=== PATIENT | male | born 1960 | race Caucasian/White ===

== ENCOUNTER 2018-07-06 12:34 | Inpatient (IN) | payer BC ==
[~2018-07-06] VITALS: Ht 190.5 cm; Wt 117.2 kg
[2018-07-06] VITALS (34 sets, daily range): BP systolic 124–166; BP diastolic 65–104
[~2018-07-06 12:34] MED LIST: FLEXERIL PO; NORCO 5-325 TA1 EACH PO; PROVENTIL HFA6.7 G1 INH
[2018-07-06] MEDS ORDERED: ASPIR-TRIN325 MG PO (12:46)
[2018-07-06 12:59] LABS: HEMATOCRIT 45.4 % (42.0-52.0); HEMOGLOBIN 15.1 gm/dL (14.0-18.0); MCH 27.5 pg (26.0-34.0); MCHC 33.3 g/dL (28.0-37.0); MCV 82.5 fL (80.0-100.0); RBC 5.5 mil/uL (4.50-6.00); WBC 10.4 thou/uL (4.0-11.0)
[2018-07-06 13:04] LABS: ANION GAP 14 mmol/L (7-16); BUN 21 mg/dL (7-18); CALCIUM 9.4 mg/dL (8.5-10.1); CHLORIDE 99 mmol/L (98-107); CO2 22 mmol/L (21-32); CREATININE 1.4 mg/dL (0.7-1.3); GLUCOSE 231 mg/dL (74-106); POTASSIUM 3.7 mmol/L (3.5-5.1)
[2018-07-06 13:06] LABS: SODIUM 135 mmol/L (136-145)
[2018-07-06 13:13] LABS: ALBUMIN 3.6 g/dL (3.4-5.0); SGOT 20 U/L (15-37); SGPT 30 U/L (30-65); TOTAL BILIRUBIN 0.4 mg/dL (<0.1-1.0); TOTAL PROTEIN 7.5 g/dL (6.4-8.2); TROPONIN-I <0.06 ng/mL (<0.06)
--- NOTE | 2018-07-06 15:28 | CATHLAB ---
[facility] [address] [place] [address] INVASIVE PROCEDURE REPORT Name: JOSEP TALBOT Room #: 243-P ADM IN M.R.#: [id number] Admission: 07/06/18 Attend Phys: Ghanshyam Oden MD Discharge: Date of : 58 Date of Service: 07/06/18 1528 Report #: [id number] THIS REPORT FOR: //name// APPROVED REPORT Study performed: 07/06/2018 13:02:58 Patient Details Patient Status: ED Room #: The patient is a 57 year-old male Event Personnel Ghanshyam Oden Industrial Automation Engineer, Kylie Blakely RTR, COOKEE Monitor, James Wiley RN RN, Mychal Jackson Scrkay Procedures Performed Art Access - R femoral artery* Left Heart Cath w/or w/o Coronaries [id number] [facility] BMS Revasc AMI Total/Sub Single RCA [id number] [facility] Hemostasis w/ Mynx Indication STEMI (>0 to less than or equal to 6 hours), Dyspnea, Chest pain Risk Factors Hypercholesterolemia, Hypertension, Diabetes Procedure Narrative The Right Groin^ was infiltrated with 1% Lidocaine subcutaneous anesthesia. A PINNACLE 6FR Sheath #[id number] sheath was inserted into the RFA^. Coronary angiography was performed using coronary diagnostic catheters. The right coronary system was accessed and visualized with a LAUNCHER 6FR JR 4 #[id number] catheter. The left coronary system was accessed and visualized with a JL4 catheter. The left ventricle was accessed and visualized with a ANGLED PIGTAIL catheter. Left ventricular/Aortic Valve gradient assessed via catheter pullback. Left ventriculogram was performed in 30 degree projection. Pre-demployment femoral angiogram was performed . Closure device was deployed with a 6 Fr MYNXGRIP 6/7F #[id number]. A hematoma occurred. Intraoperative Conscious Sedation No sedation was given. Fluoro Time: 13.39 minutes [facility] [place] [address] INVASIVE PROCEDURE REPORT Name: JOSEP TALBOT Room #: 243-P [facility] IN M.R.#: [id number] Admission: 07/06/18 Attend Phys: Ghanshyam Oden MD Discharge: Date of : 58 Date of Service: 07/06/18 1528 Report #: [id number] Dose: DAP 51345.10 cGycm2 2404 mGy Contrast Type and Amount: Visipaque 240 ml Coronary Angiography The patient's coronary anatomy is right dominant. Diagnostic Cath Left Main This is a large caliber vessel, with no flow-limiting lesions. LAD This is a moderate size caliber vessel, traversing the anterior wall and wrapping around the apex. There is mild diffuse disease in the proximal segment, 10%. Diagonal 1 This is a patent vessel, with no flow-limiting lesions. Circumflex There is mild diffuse disease in the proximal segment, 10%. OM1 This is a moderate size caliber vessel, with mild disease proximally. OM2 This is a patent vessel, with no flow-limiting lesions. Right Coronary This is a dominant vessel, ectatic throughout with a total occlusion in the midsegment. R PDA There is mild disease proximally. RPLV There is a total occlusion in the proximal segment. Left Ventriculography The left ventricle is normal in size with decreased contractility. The left ventricular ejection fraction is estimated to be 40-45%. There is hypokinesis of the inferior wall. Hemodynamics The aortic pressure is 192/94 mmHg with a mean of 131 mmHg. The left ventricular pressure is 137/12 mmHg with a mean of mmHg. The left ventricular end diastolic pressure is 29 mmHg. PCI Technique Lesion Percutaneous coronary intervention was performed on the mid right coronary artery. The lesion stenosis prior to intervention was 100% with JEWELS 0 flow. A LAUNCHER 6FR JR 4 #[id number] Guide Catheter was used to engage the ostium. A Luge Wire .014 x 182CM #[id number] Interventional Guidewire was used to cross the lesion. BALLOON DILATION A Balloon catheter Euphora RX 2.5 x 12 #[id number] was inserted and inflated up to 8.00atm for 9seconds. Additional Inflation: 8.00atm for 7seconds. Additional Inflation: 8.00atm for 5seconds. [facility] [address] [place] [address] INVASIVE PROCEDURE REPORT Name: JOSEP TALBOT Room #: 243-P [facility] IN M.R.#: [id number] Admission: 07/06/18 Attend Phys: Ghanshyam Oden MD Discharge: Date of : 58 Date of Service: 07/06/18 1528 Report #: [id number] STENT DEPLOYMENT A bare metal stent INTEGRITY RX 3.5 X 12 #[id number] was inserted and inflated up to 18.00atm for 19seconds. A bare metal stent was used in this segment as the vessel was ectatic. Final angiography reveals 5 % stenosis with JEWELS 3 flow. PCI Technique Lesion 2 Percutaneous Coronary Intervention was performed on the first right posterior lateral segment. The lesion stenosis prior to intervention was 100% with JEWELS 0 flow. A LAUNCHER 6FR JR 4 #[id number] Guide Catheter was used to engage the ostium. A Luge Wire .014 x 182CM #[id number] Interventional Guidewire was used to cross the lesion. Balloon Dilation A Balloon catheter Euphora RX 2.0 x 15 #[id number] was inserted and inflated up to 8.00atm for 16seconds. Additional Inflation: 6.00atm for 15seconds. Stent Deployment A bare metal stent INTEGRITY RX 2.75 X 14 #[id number] was inserted and inflated up to 8.00atm for 18seconds. Final angiography reveals 0 % stenosis with JEWELS 3 flow. PCI Technique Lesion 3 Percutaneous Coronary Intervention was performed on the second right posterior lateral segment. A LAUNCHER 6FR JR 4 #[id number] Guide Catheter was used to engage the ostium. A Luge Wire .014 x 182CM #[id number] Interventional Guidewire was used to cross the lesion. Stent Deployment A bare metal stent INTEGRITY RX 2.75 X 14 #[id number] was inserted and inflated up to 18.00atm for 18seconds. Conclusion 1. Successful insertion of bare metal stents into the mid RCA(ectatic vessel) and first RPL branch. 2. Mild disease in the LAD and left circumflex arteries. 3. Mild to moderate segmental LV dysfunction. 4. Recommend aggressive risk factor management and dual antiplatelet therapy. <ELECTRONICALLY SIGNED> By: Ghanshyam Oden MD 07/06/18 1528 1528 1528 Ghanshyam Oden MD /INF
--- NOTE | 2018-07-06 15:29 | HC ---
[facility] [place] [address] [place] [address] CONSULTATION Name: JOSEP TALBOT Room #: [facility] IN M.R.#: [id number] Admission: 07/06/18 Attend Phys: Ghanshyam Oden MD Discharge: Date of : 58 Report #: [id number] THIS REPORT FOR: //name// CC: [facility] physician/PCP Bhupinder Dodd DATE OF SERVICE: 07/06/2018 INDICATION: Chest pain. HISTORY OF PRESENT ILLNESS: This is a 57-year-old gentleman with a history of borderline hypertension, borderline diabetes mellitus, presenting with acute onset of chest pain. He developed substernal chest pain radiating to left arm approximately 2 hours prior to presentation in the ER. He denies any diaphoresis or dyspnea. There is no history of fever, chills, nausea or diarrhea. He denies any previous cardiac history. PAST MEDICAL HISTORY: Borderline hypertension, borderline diabetes. History of pneumonia with pneumothorax. ALLERGIES: None. MEDICATIONS: None. SOCIAL HISTORY: Denies tobacco use, works as a mri specialist. FAMILY HISTORY: Negative for premature CAD. REVIEW OF SYSTEMS: A full 10-point review of system is performed. Only the pertinent positives and negatives as described in the HPI. PHYSICAL EXAMINATION: VITAL SIGNS: Blood pressure is 160/90, heart rate is 65 beats per minute. GENERAL APPEARANCE: A mildly overweight male in mild distress. HEENT: Normocephalic, atraumatic. Oral mucosa moist. NECK: Supple. LUNGS: Clear to auscultation. CARDIAC: Regular rate and rhythm, S1, S2 positive. ABDOMEN: Soft, nontender. EXTREMITIES: No cyanosis, no edema. ECG reveals sinus rhythm with 3-[address] segment elevation in the inferior leads. LABORATORY VALUES: Pending. ASSESSMENT AND PLAN: [facility] [address] [place] [address] CONSULTATION Name: JOSEP TALBOT Room #: 243-P ADM IN M.R.#: [id number] Admission: 07/06/18 Attend Phys: Ghanshyam Oden MD Discharge: Date of : 58 Report #: [id number] 1. Acute inferior wall myocardial infarction. The patient was treated with aspirin, Effient and heparin in the ER. He will be taken emergently to the cardiac catheterization lab. 2. Hypertension, will be started on the appropriate medications. 3. Hypercholesterolemia, he will need a lipid panel evaluated and started on a statin. 4. Diabetes mellitus, we will check fingersticks. <ELECTRONICALLY SIGNED> By: Ghanshyam Oden MD 07/06/18 1529 1305 1315 Ghanshyam Oden MD /nt
[2018-07-06 17:53] LABS: MAGNESIUM 1.6 mg/dL (1.8-2.4); POTASSIUM 4.4 mmol/L (3.5-5.1)
--- NOTE | 2018-07-06 18:25 | NUR ---
DR. DALY UPDATED ON FREQUENT PVCS AND MAG LEVEL - ORDERS RECEIVED
[2018-07-07] VITALS (25 sets, daily range): BP systolic 97–125; BP diastolic 45–83
--- NOTE | 2018-07-07 00:45 | NUR ---
ASSUMED CARE OF PT AT 1900. PT ALERT AND ORIENTED X4. PT ON BEDREST TILL 2200 POST CARDIAC CATH. PT SR. HYPERTENSIVE AT TIMES. CRITICAL TROPONIN CALLED TO DR DALY. ORDER FOR LOSARTAN 50 MG PO IF PT HYPERTENSIVE. PT ON CPAP NOCTURNAL. PT REQUESTED NOT TO HAVE MEDICATIONS THAT HE HAS NOT HAD PREVIOUSLY HE STATES THAT HE HAS ADVERSE EFFECTS TO ALOT OF MEDICATION. PT TOLERATING DIET. GOOD UO. HEMATOMA HAS RESOLVED. RIGHT GROIN SITE MILDLY ECHYMOTIC BUT NO HEMATOMA NOTED. SMAL AMOUNT OF DRAINAGE ON DRESSING. WILL CONTINUE TO MONITOR PT.
[2018-07-07 05:16] LABS: HEMATOCRIT 42.3 % (42.0-52.0); HEMOGLOBIN 14.1 gm/dL (14.0-18.0); MCH 27.7 pg (26.0-34.0); MCHC 33.5 g/dL (28.0-37.0); MCV 82.7 fL (80.0-100.0); RBC 5.11 mil/uL (4.50-6.00); RDW 14.2 % (10.5-14.5); WBC 12.1 thou/uL (4.0-11.0)
[2018-07-07 05:31] LABS: CHOLESTEROL 204 mg/dL (<200); HDL CHOLESTEROL 37 mg/dL (>40); LDL CHOLESTEROL 130 mg/dL (<100); TC:HDL 5.5 Ratio (Not establshd); TRIGLYCERIDE 185 mg/dL (<150); VLDL 37 mg/dL (<40)
[2018-07-07 05:32] LABS: SERUM ASSESSMENT Moderate Lipemia
--- NOTE | 2018-07-07 10:56 | EKG ---
[address] [place] [employer] [place] [address] ELECTROCARDIOGRAM REPORT Name: JOSEP TALBOT Room #: 243-P ADM IN M.R.#: [id number] Admission: 07/06/18 Attend Phys: Ghanshyam Oden MD Discharge: Date of : 58 Report #: [id number] THIS REPORT FOR: //name// [facility] ED Test Date: 2018-07-06 Test Time: 12:32:32 Pat Name: JOSEP TALBOT Department: Room: 243 Gender: M Winder Tender: DORCAS : 1960 Requested By: Ghanshyam Oden Order Number: [id number] MD: Ghanshyam Oden Measurements Intervals [place] Rate: 64 P: 45 [place]: 146 QRS: 46 QRSD: 97 T: 93 QT: 413 QTc: 426 Interpretive Statements Sinus rhythm Inferoposterior infarct, acute (RCA) Lateral leads are also involved Probable RV involvement, suggest recording right precordial leads Compared to ECG 03/26/2012 09:41:21 Myocardial infarct finding now present Electronically Signed On 07-07-2018 10:55:49 MERCHANDISING EXECUTION ASSOCIATE by Ghanshyam Oden [email or web address] <ELECTRONICALLY SIGNED> By: Ghanshyam Oden MD 07/07/18 1055 1232 1232 Ghanshyam Oden MD /JAXSON
--- NOTE | 2018-07-07 11:02 | EKG ---
[address] [address] ELECTROCARDIOGRAM REPORT Name: JOSEP TALBOT Room #: 243-P ADM IN M.R.#: [id number] Admission: 07/06/18 Attend Phys: Ghanshyam Oden MD Discharge: Date of : 58 Report #: [id number] THIS REPORT FOR: //name// [facility] Test Date: 2018-07-07 Test Time: 09:32:42 Pat Name: JOSEP TALBOT Department: Room: 243 P Gender: M Heel Coverer Machine Operator: SEEMA : 1960 Requested By: Ghanshyam Oden Order Number: [id number] MD: Ghanshyam Oden Measurements Intervals [place] Rate: 67 P: 49 [place]: 145 QRS: -24 QRSD: 97 T: 33 QT: 395 QTc: 417 Interpretive Statements Sinus rhythm Probable inferior infarct, acute Posterior infarct, recent Compared to ECG 03/26/2012 09:41:21 Myocardial infarct finding now present Electronically Signed On 07-07-2018 11:01:53 AIRCRAFT MECHANIC by Ghanshyam Oden [email or web address] <ELECTRONICALLY SIGNED> By: Ghanshyam Oden MD 07/07/18 1101 0932 0932 Ghanshyam Oden MD /JAXSON
--- NOTE | 2018-07-07 15:31 | NUR ---
ASSUMED PATIENT CARE FROM JOSE ANGEL WALLACE FROM [id number]. PATIENT UP IN CHAIR, A&O. ROOM AIR. TOLERATING DIET. PATIENT VOIDS PER URINAL. NO COMPLAINTS STATED. RIGHT GROIN SITE, INTACT, NO HEMATOMA, SMALL DRY DRAINAGE PRESENT ON DRESSING. FAMILY AT BEDSIDE.
--- NOTE | 2018-07-07 18:48 | NUR ---
END OF SHIFT NOTE. PT CCU OVERFLOW WALKED IN HALLS. DENIES CP O PRESSURE. R GROIN STABLE. VSS. TOLORATING DIET. BLOOD SUGARS REMAIN HIGH.
[2018-07-07 23:05] LABS: GLYCOHEMOGLOBIN (HGB A1C) 7.9 % (4.8-5.6)
[2018-07-08] VITALS (7 sets, daily range): BP systolic 105–130; BP diastolic 70–77
[2018-07-08 04:08] LABS: CALCIUM 8.6 mg/dL (8.5-10.1); CREATININE 1.5 mg/dL (0.7-1.3); POTASSIUM 3.8 mmol/L (3.5-5.1)
[2018-07-08 04:17] LABS: HEMATOCRIT 40.2 % (42.0-52.0); HEMOGLOBIN 13.2 gm/dL (14.0-18.0); MCH 27.5 pg (26.0-34.0); MCV 83.3 fL (80.0-100.0); RBC 4.82 mil/uL (4.50-6.00); RDW 14.3 % (10.5-14.5)
--- NOTE | 2018-07-08 06:00 | NUR ---
REMAINS A CCU OVERFLOW. WILL CONT TO MONITOR
--- NOTE | 2018-07-08 06:00 | NUR ---
EARLIER PT WALKED AROUND ICU 15 X AND KAROL WELL. DENIES SOA. REMAINS AWAKE AND ALERT. SLEPT AT SHORT INTERVALS TONIGHT. RIGHT GROIN SITE INTACT WITH SOME BRUISING. PULSES INTACT. VOIDED 800 CC CLEAR YELLOW URINE TONIGHT. DENIES CP NOR SOA. WILL CONT TO MONITOR.
[2018-07-08] MEDS ORDERED: EFFIENT10 MG PO (07:49)
[2018-07-08] MEDS ORDERED: ATORVASTATIN CA80 MG PO (07:49)
[2018-07-08] MEDS ORDERED: LOPRESSOR25 PO (07:50)
--- NOTE | 2018-07-08 08:30 | EKG ---
[address] [place] [address] ELECTROCARDIOGRAM REPORT Name: JOSEP TALBOT Room #: 243-P ADM IN M.R.#: [id number] Admission: 07/06/18 Attend Phys: Ghanshyam Oden MD Discharge: Date of : 58 Report #: [id number] THIS REPORT FOR: //name// [facility] Test Date: 2018-07-08 Test Time: 04:31:18 Pat Name: JOSEP TALBOT Department: Room: 243 P Gender: M Director Voice: Dajuan JAIMES RN : 1960 Requested By: Brinda Espinosa Order Number: [id number] MD: Mike Chou Measurements Intervals [place] Rate: 64 P: 56 [place]: 143 QRS: -17 QRSD: 101 T: -43 QT: 412 QTc: 425 Interpretive Statements Sinus rhythm Inferior infarct, recent Baseline wander in lead(s) V2 Compared to ECG 07/07/2018 09:32:42 No significant changes Electronically Signed On 07-08-2018 8:29:48 SENIOR NATIONAL ACCOUNT MANAGER by Mike Chou [email or web address] <ELECTRONICALLY SIGNED> By: Mike Chou MD, [facility] 07/08/18 0829 0 0 Mike Chou MD, [facility] /EPI
--- NOTE | 2018-07-09 09:06 | D ---
[facility] [place] [address] [place] [address] DISCHARGE SUMMARY Name: JOSEP TALBOT Room #: 243-P [facility] IN M.R.#: [id number] Admission: 07/06/18 Attend Phys: Ghanshyam Oden MD Discharge: 07/08/18 Date of : 58 Report #: [id number] THIS REPORT FOR: //name// CC: [facility] physician/PCP Ghanshyam Oden DATE OF SERVICE: 07/08/2018 FINAL DIAGNOSES: 1. Acute inferior wall myocardial infarction, status post coronary intervention. 2. Hypertension. 3. Hypercholesterolemia. 4. Diabetes mellitus. 5. Medical noncompliance. HOSPITAL COURSE: Please see the original H and P for full details. The patient has a history of borderline hypertension and diabetes mellitus, presenting with acute chest pains. The ECG revealed ST elevation in the inferior leads. He was taken to the microbiology lab assistant emergently. There was a total occlusion of the RCA, undergoing angioplasty with stent insertion. The RCA was ectatic. There was a stent placed at the initial occlusion side in the mid RCA segment. There was another total obstruction in the right posterolateral branch, undergoing placement of a stent. There was mild disease in the LAD and left circumflex. The EF was in the 40-45% range, with hypokinesis of the inferior segment. He was admitted to the ICU for further observation. He has remained stable with no further episodes of chest pains or shortness of breath. He is ambulating in the ICU without any complaints. His hemoglobin A1c is 7.9. He was evaluated by the hospitalist regarding his diabetes and the need for medications. However, he is adamant that he does not need any medication. He is currently undergoing treatment with his primary care physician, trying to use nonmedical strategies to keep his sugars within the normal range. I did prescribe Lipitor; however, he refuses all statins. He has never tried a statin medication; however, he has family members who had side effects. We had a long discussion regarding the importance of compliance with medical therapy. However, he still refuses any statin or diabetic medication. He is willing to take aspirin, Effient and low dose metoprolol. He is stable for discharge and will follow up as an outpatient in a few weeks. DISPOSITION: Aspirin 325 daily, Effient 10 mg daily, metoprolol 12.5 mg b.i.d. <ELECTRONICALLY SIGNED> By: Ghanshyam Oden MD 07/09/18 0906 0807 0835 Ghanshyam Oden MD /nt
== END 2018-07-08 11:15 | disposition home or self-care (01) | DRG 248 ==
LOC: ER 12:34 → EROBS 15:07 → ICU 15:07
PROVIDERS: Emergency Medicine; Internal Medicine; ADMIT Internal Medicine Cardiovascular Disease
PROC: B2151ZZ Fluoroscopy of Left Heart using Low Osmolar Contrast (ICD-10-PCS; principal; 2018-07-06)
PROC: B41F1ZZ Fluoroscopy of Right Lower Extremity Arteries using Low Osmolar Contrast (ICD-10-PCS; principal; 2018-07-06)
PROC: 4A023N7 Measurement of Cardiac Sampling and Pressure, Left Heart, Percutaneous Approach (ICD-10-PCS; principal; 2018-07-06)
PROC: 02713FZ Dilation of Coronary Artery, Two Arteries with Three Intraluminal Devices, Percutaneous Approach (ICD-10-PCS; principal; 2018-07-06)
PROC: B2111ZZ Fluoroscopy of Multiple Coronary Arteries using Low Osmolar Contrast (ICD-10-PCS; principal; 2018-07-06)
DX: I21.3 ST elevation (STEMI) myocardial infarction of unspecified site (principal); I50.33 Acute on chronic diastolic (congestive) heart failure; E11.9 Type 2 diabetes mellitus without complications; E78.00 Pure hypercholesterolemia, unspecified; E78.5 Hyperlipidemia, unspecified; F43.10 Post-traumatic stress disorder, unspecified; I10 Essential (primary) hypertension; J44.9 Chronic obstructive pulmonary disease, unspecified; Z79.82 Long term (current) use of aspirin; Z91.14 Patient's other noncompliance with medication regimen
CPT/HCPCS: 10078